=== PATIENT | female | born 1970 | race Caucasian/White ===

== ENCOUNTER 2020-05-06 22:42 | Outpatient (REF) | payer OTHER, SELFPAY ==
[2020-05-07 02:37] LABS: Abs Immature Grans 0.04 10^3/uL (0.0-0.06); Absolute Basophil Count 0.05 10^3/uL (0.0-0.2); Absolute Eosinophil Count 0.17 10^3/uL (0.0-0.7); Absolute Lymphocyte Count 2.75 10^3/uL (1.2-3.4); Absolute Monocyte Count 0.64 10^3/uL (0.1-0.8); Basophils % 0.4; Eosinophils % 1.4; HCT 39.5 % (36.0-46.0); HGB 12.1 g/dL (11.2-15.7); Immature Grans % 0.3; Lymphocytes % 23.2; MCH 25.3 pg (27.0-33.0); MCHC 30.6 % (32.0-36.0); MCV 82.6 fL (80-95); MPV 10.1 fL (8.0-11.0); Monocytes % 5.4; Neutrophils % 69.3; Nucleated RBC 0 %; Platelet Count 402 10^3/uL (130-400); RBC 4.78 10^6/uL (3.93-5.22); RDW 14.4 % (11.7-14.6); RDW-SD 43.6 fL; WBC 11.86 10^3/uL (4.4-10.8)
[2020-05-07 02:39] LABS: Absolute Neutrophil Count 8.22 10^3/uL (1.2-6.7)
[2020-05-07 02:51] LABS: COMMENT (LAB VIEW ONLY) 312.71 mg/dL
[2020-05-07 03:00] LABS: Hemoglobin A1C 8.9 % (<5.7)
[2020-05-07 03:17] LABS: ALT 38 U/L (14-59); AST 28 U/L (15-37); Albumin 3.8 g/dL (3.4-5.0); Alkaline Phosphatase 113 U/L (46-116); BUN 13 mg/dL (7-18); Bilirubin, Total 0.2 mg/dL (0.2-1.0); CREATININE 0.66 mg/dL (0.55-1.02); Chloride 106 mmol/L (98-107); Glucose 176 mg/dL (74-106); Potassium 4.3 mmol/L (3.5-5.1); Sodium 144 mmol/L (136-145); Total Protein 7.4 g/dL (6.4-8.2); Vitamin B12 492 pg/mL (193-986)
== END 2020-05-06 23:02 ==
LOC: NCHCN 22:42
PROVIDERS: Visit Provider Nurse Practitioner Family
DX: E11.9 Type 2 diabetes mellitus without complications (principal); R53.83 Other fatigue; D72.829 Elevated white blood cell count, unspecified; K76.0 Fatty (change of) liver, not elsewhere classified; Z51.81 Encounter for therapeutic drug level monitoring
CPT/HCPCS: 80053; 82043; 82570; 82607; 83036; 83735; 85025

== ENCOUNTER 2020-06-06 14:44 | Outpatient (REF) | payer OTHER, SELFPAY ==
--- NOTE | 2020-06-06 09:15 | ENDOMET_PTH ---
PATIENT: Melinda Martines LOC: [facility] U#:[id number] AGE/SX: 50/F ROOM: RE06/06/[address]: Ca Godwin : 1970 BED: DIS: 06/06/2020 SPEC #: [id number] RECD: 06/09/20 12:46 STATUS: SAMUEL REQ #: [id number] LEOBARDO: 06/06/20 09:[address]: Ca Godwin DEPT: Surgical Specimen RECD BY: Mayra Gill Tissues: 1 - ENDOMETRIUM BX/BERTHA Procedures: GROSS AND MICRO LEVEL 4 Comments: [id number]
--- NOTE | 2020-06-06 09:15 | PAPFT_PTH ---
PATIENT: Melinda Martines LOC: [facility] U#:[id number] AGE/SX: 50/F ROOM: RE06/06/[address]: Ca Godwin : 1970 BED: DIS: 06/06/2020 SPEC #: [id number] RECD: 06/09/20 13:10 STATUS: SAMUEL REQ #: [id number] LEOBARDO: 06/06/20 09:[address]: Ca Godwin DEPT: [facility] Cytology RECD BY: Mayra Gill Tissues: 1 - CX/ENDOCX FOR PAP SMEARS Procedures: PAP THIN PREP/[facility] Screening Comments: [id number]
== END 2020-06-06 15:04 ==
LOC: NCHCN 14:44
PROVIDERS: Visit Provider Family Medicine
DX: Z12.4 Encounter for screening for malignant neoplasm of cervix
CPT/HCPCS: 88142; 88305

== ENCOUNTER 2021-05-18 17:03 | Outpatient (REF) | payer OTHER, SELFPAY ==
[2021-05-18 22:32] LABS: COMMENT (LAB VIEW ONLY) 184.72 mg/dL; Microalb ug/mg Crea 7.7 ug/mg Cr
== END 2021-05-18 17:04 | disposition home or self-care (01) ==
LOC: NCHCN 17:03
PROVIDERS: Visit Provider Nurse Practitioner Family
DX: E11.9 Type 2 diabetes mellitus without complications (principal); I10 Essential (primary) hypertension
CPT/HCPCS: 82043; 82570

== ENCOUNTER 2021-07-21 12:03 | Outpatient (REF) | payer OTHER, SELFPAY ==
--- NOTE | 2021-07-21 11:30 | ENDOMET_PTH ---
PATIENT: Melinda Martines LOC: [facility] U#:[id number] AGE/SX: 51/F ROOM: RE07/21/[address]: Latonya Goins : 1970 BED: DIS: 07/21/2021 SPEC #: [id number] RECD: 07/22/21 12:32 STATUS: SAMUEL REQ #: [id number] LEOBARDO: 07/21/21 11:[address]: Latonya Ramos DEPT: Surgical Specimen RECD BY: Mayra Gill ENTERED: 07/22/21 12:33 SP TYPE: Endomet OT DR: Unknown,Unknown Tissues: 1 - ENDOMETRIUM BX/CURRETTE Procedures: GROSS AND MICRO LEVEL 4 Comments: [id number]
== END 2021-07-21 12:04 | disposition home or self-care (01) ==
LOC: LBN 12:03
PROVIDERS: Visit Provider Nurse Practitioner Family
DX: N85.8 Other specified noninflammatory disorders of uterus (principal)
CPT/HCPCS: 88305

== ENCOUNTER 2022-08-17 13:17 | Outpatient (REF) | payer OTHER, SELFPAY ==
[2022-08-19 12:25] LABS: COVID-19 RT-PCR UVMMC Result Positive (Negative)
== END 2022-08-17 13:18 | disposition home or self-care (01) ==
LOC: NCHCN 13:17
PROVIDERS: Visit Provider Nurse Practitioner Family
DX: Z20.822 Contact with and (suspected) exposure to COVID-19 (principal); J06.9 Acute upper respiratory infection, unspecified
CPT/HCPCS: U0003

== ENCOUNTER 2022-09-09 10:46 | Outpatient (REF) | payer OTHER, SELFPAY ==
--- OUTSIDE RECORDS SUMMARY | 2022-09-09 10:49 | XMS_ITS | CCD ---
:1970 Author Care Team Providers Name Role Phone FIONA NOVAK Attending Physician Unavailable Vital Signs Unknown or Not Available. Allergies Allergy Code Allergy Type Reaction Status DUST 0 Allergy to substance ITCHING Active POLLEN 0 Allergy to substance ITCHING Active IBUPROFEN 5640 Drug allergy Vomiting Active SULFA (SULFONAMIDE ANTIBIOTICS) 0 Drug allergy Hives Active {Clinical monitoring unavailable} BETADINE Drug allergy Active Procedures Unknown or Not Available. History of Immunizations Unknown or Not Available. Problems Unknown or Not Available. Results [facility] COVID RHEONIX* - Collect Date/Hugh e: 12/17/2021 13:12 Test Name Code Test Result Test Units Test Ref Range Tier- 05962-7 STAFF PRIORITY N/A SARS COV2 RNA: 80145-7 NEGATIVE N/A REFERENCE RAN GE: NEGAT Active Medications Unknown or Not Available. Medications Administered During Visit Unknown or Not Available. Encounters Encounter Diagnosis Diagnosis Code Start Date Exposure to SARS-CoV-2 [id number] 12/17/2021 Social History Smoking Status Code Start Date End Date Never smoker [id number] Patient Decision Aids Unknown or Not Available. Discharge Instructions You were admitted to [facility] on 12/17/2021 16:28 with a principal diagnosis of Contact with and (suspected) exposure to COVID-19 You had the following tests done: COPLE Y COVID RHEONIX* You were discharged from [facility] on 12/17/2021 16:28 Should you have any questions prior to d ischarge, please contact a member of your healthcare team. If you have left the ho spital and have any questions, please contact your primary care physician. Chief Complaint and Reason For Visit Unknown or Not Available. Function Status Unknown or Not Available. Plan of Care Unknown or Not Available. Referral/Transition of Care Unknown or Not Available.
--- OUTSIDE RECORDS SUMMARY | 2022-09-09 10:49 | XMS_ITS | CCD ---
:1970 Author Care Team Providers Name Role Phone FERNANDO WALKER Attending Physician Unavailable FERNANDO WALKER Rounding (Secondary) Physician Unavailab le Vital Signs Unknown or Not Available. Allergies [...] Available. Problems Unknown or Not Available. Results Unknown or Not Available. Active Medications Unknown or Not Available. Medications Administered During Visit Unknown or Not Available. Encounters Encounter Diagnosis Diagnosis Code Start Date Encounter for follow-up examination after completed Z09 09/17/2021 treatment for conditions other than malignant neoplasm Social History Smoking Status Code Start Date End Date Never smoker [id number] Patient Decision Aids Unknown or Not Available. Discharge Instructions You were admitted to [facility] on 09/17/2021 09:52 with a principal diagnosis of Encntr for f/u exam aft trtmt for con d oth than malig neoplm You were discharged from [facility] on 09/17/2021 09:52 Should you have any questions prior to d ischarge, please contact a member of your healthcare team. If you have left the spital and have any questions, please contact your primary care physician. Chief Complaint and Reason For Visit Unknown or Not Available. Function Status Unknown or Not Available. Plan of Care Unknown or Not Available. Referral/Transition of Care Unknown or Not Available.
--- OUTSIDE RECORDS SUMMARY | 2022-09-09 10:49 | XMS_ITS | CCD ---
:1970 Author Care Team Providers Name Role Phone KISHORE FIONA Anaya Attending Physician Unavailable Vital Signs Unknown or [...] Available. Problems Unknown or Not Available. Results [facility] COVID RHEONIX* - Collect Date/Hugh e: 12/21/2021 12:53 Test Name Code Test Result Test Units Test Ref Range Tier- 41611-2 STAFF PRIORITY N/A SARS COV2 RNA: 76100-1 NEGATIVE N/A REFERENCE RAN GE: NEGAT Active Medications Unknown or Not Available. Medications Administered During Visit Unknown or Not Available. Encounters Encounter Diagnosis Diagnosis Code Start Date Exposure to SARS-CoV-2 [id number] 12/21/2021 Social History Smoking Status Code Start Date End Date Never smoker [id number] Patient Decision Aids Unknown or Not Available. Discharge Instructions You were admitted to [facility] on 12/21/2021 20:12 with a principal diagnosis of Contact with and (suspected) exposure to COVID-19 You had the following tests done: COPLE Y COVID RHEONIX* You were discharged from [facility] on 12/21/2021 20:12 Should you have any questions prior to [...]
--- OUTSIDE RECORDS SUMMARY | 2022-09-09 10:49 | XMS_ITS | CCD ---
:1970 Author Care Team Providers Name Role Phone STEVE VELEZ Attending Physician Unavailable Vital Signs Unknown or Not Available. Allergies Allergy Code Allergy Type Reaction Status SULFA (SULFONAMIDE ANTIBIOTICS) {Clinical 0 Drug allergy Hives Active monitoring unavailable} BETADINE Drug allergy Active Procedures Unknown or Not Available. History of Immunizations Unknown or Not Available. Problems Unknown or Not Available. Results Unknown or Not Available. Active Medications Unknown or Not Available. Medications Administered During Visit Unknown or Not Available. Encounters Encounter Diagnosis Diagnosis Code Start Date Imaging result abnormal [id number] 07/14/2021 Social History Smoking Status Code Start Date End Date Never smoker [id number] Patient Decision Aids Unknown or Not Available. Discharge Instructions You were admitted to [facility] on 07/14/2021 14:22 with a principal diagnosis of Abnormal findings on diagnostic imagi ng of other specified body structures You were discharged from [facility] on 07/14/2021 14:22 Should you have any questions prior to d ischarge, please contact a member of your healthcare team. If you have left the ho spital and have any questions, please contact your primary care physician. Chief Complaint and Reason For Visit Chief Complaint Date of Onset PMB Function Status Unknown or Not Available. Plan of Care Unknown or Not Available. Referral/Transition of Care Unknown or Not Available.
--- OUTSIDE RECORDS SUMMARY | 2022-09-09 10:49 | XMS_ITS | CCD ---
:1970 Author Care Team Providers Name Role Phone FERNANDO WALKER Attending Physician Unavailable Vital Signs Unknown or Not Available. Allergies Allergy Code Allergy Type Reaction Status SULFA (SULFONAMIDE ANTIBIOTICS) {Clinical 0 Drug allergy Hives Active monitoring unavailable} BETADINE Drug allergy Active Procedures Unknown or Not Available. History of Immunizations Unknown or Not Available. Problems Unknown or Not Available. Results [facility] COVID RHEONIX* - Collect Date/Hugh e: 08/31/2021 16:50 Test Name Code Test Result Test Units Test Ref Range Tier- PRE-OP N/A SARS COV2 RNA: 76392-3 NEGATIVE N/A REFERENCE RAN GE: NEGAT Active Medications Unknown or Not Available. Medications Administered During Visit Unknown or Not Available. Encounters Encounter Diagnosis Diagnosis Code Start Date Pre-surgery testing [id number] 08/31/2021 Social History Smoking Status Code Start Date End Date Never smoker [id number] Patient Decision Aids Unknown or Not Available. Discharge Instructions You were admitted to [facility] on 08/31/2021 08:34 with a principal diagnosis of Encounter for preprocedural laborator y examination You had the following tests done: COPLE Y COVID RHEONIX* You were discharged from [facility] on 08/31/2021 08:34 Should you have any questions prior to [...]
--- OUTSIDE RECORDS SUMMARY | 2022-09-09 10:49 | XMS_ITS | CCD ---
[...] Available. Problems Unknown or Not Available. Results [facility] COVID RHEONIX* - Collect Date/Hugh e: 11/06/2021 10:37 Test Name Code Test Result Test Units Test Ref Range Tier- 11124-9 STAFF PRIORITY N/A SARS COV2 RNA: 31765-5 NEGATIVE N/A REFERENCE RAN GE: NEGAT Active Medications Unknown or Not Available. Medications Administered During Visit Unknown or Not Available. Encounters Encounter Diagnosis Diagnosis Code Start Date Exposure to SARS-CoV-2 [id number] 11/06/2021 Social History Smoking Status Code Start Date End Date Never smoker [id number] Patient Decision Aids Unknown or Not Available. Discharge Instructions You were admitted to [facility] on 11/06/2021 22:15 with a principal diagnosis of Contact with and (suspected) exposure to COVID-19 You had the following tests done: COPLE Y COVID RHEONIX* You were discharged from [facility] on 11/06/2021 22:15 Should you have any questions prior to [...]
--- OUTSIDE RECORDS SUMMARY | 2022-09-09 10:49 | XMS_ITS | CCD ---
[...] Available. Problems Unknown or Not Available. Results COMPREHENSIVE METABOLIC PANEL (CMP) - Co llect Date/Time: 08/27/2021 11:08 Test Name Code Test Result Test Units Test Ref Range GLUCOSE 2345-7 169 mg/dL L=70 H=116 BUN 3094-0 19 mg/dL L=6 H=25 CREATININE 2160-0 0.79 mg/dL L=0.51 H=0.95 SODIUM SERUM 2951-2 141 mmol/L L=136 H=145 POTASSIUM SERUM 2823-3 4.1 mmol/L L=3.4 H=5.2 CHLORIDE SERUM 2075-0 104 mmol/L L=96 H=110 CARBON DIOXIDE (CO2) 2028-9 30 mmol/L L=22 H= 34 ANION GAP 89837-6 6.7 mmol/L CALCIUM SERUM 64792-4 9.1 mg/dL L=8.2 H=10.2 BILIRUBIN TOTAL 1975-2 0.2 mg/dL L=0.0 H=1.3 ALK. PHOS. 6768-6 119 U/L L=46 H=116 SGOT (AST) 1920-8 19 U/L L=15 H=37 SGPT (ALT) 1742-6 31 U/L L=12 H=78 TOTAL PROTEIN 2885-2 8.0 gm/dL L=6.0 H=8.0 ALBUMIN 1751-7 3.7 gm/dL L=3.4 H=5.0 AGE 51 years eGFR (non-Afr.Amer.) 86596-9 77 mL/min eGFR (Afr-Samoan) 91541-9 93 mL/min CBC W/ DIFFERENTIAL* - Collect Date/Time : 08/27/2021 11:08 Test Name Code Test Result Test Units Test Ref Range WBC 6690-2 15.24 th/cmm L=5.00 H=10.00 NEUT % 71.0 % L=40.0 H=80.0 LYMPH % 22.8 % L=10.0 H=50.0 MONO % 78029-2 4.5 % L=2.0 H=12.0 EOS % 0.9 % L=0.0 H=8.0 BASO % 0.5 % L=0.0 H=3.0 IG % 2514-8 0.3 % L=0.0 H=1.1 NRBC % 05787-6 0.0 % L=0.0 H=0.0 NEUT abs count 751-8 10.8 th/cmm L=1.6 H=8.4 LYMPH abs count 731-0 3.5 th/cmm L=1.5 H=4.0 MONO abs count 742-7 0.7 th/cmm L=0.2 H=1.0 EOS abs count 711-2 0.1 th/cmm L=0.0 H=0.5 BASO abs count 704-7 0.1 th/cmm L=0.0 H=0.2 IG abs count 09682-5 0.1 th/cmm L=0.0 H=0.1 NRBC abs count 24016-6 0.0 mil/cmm L=0.0 H=0.0 RBC 789-8 4.82 mil/cmm L=3.90 H=5.40 HEMOGLOBIN 718-7 13.2 gm/dL L=12.0 H=16.0 HEMATOCRIT 4544-3 42 % L=37 H=47 MCV 787-2 86 fL L=82 H=92 MCH 785-6 27.4 pg L=27.0 H=31.0 MCHC 786-4 31.7 % L=32.0 H=36.0 RDW-SD 788-0 42.8 fL L=39.0 H=49.0 PLATELET COUNT 777-3 378 th/cmm L=150 H=450 URINALYSIS WITH MICRO AND REFLEX CULTUR* - Collect Date/Time: 08/27/2021 11:08 Test Name Code Test Result Test Units Test Ref Range COLLECTION MODE: NOT STATED N/A Color 5778-6 YELLOW N/A yellow Appearance 5767-9 CLEAR N/A clear Glucose urine 40937-7 NEGATIVE N/A negative mg/dl Bilirubin 5770-3 NEGATIVE N/A negative Ketones 2514-8 TRACE N/A negative mg/dl Spec gravity 5811-5 1.025 N/A 1.003 - 1.030 pH urine 2756-5 6.0 N/A 5.0 - 7.0 Protein 14179-6 NEGATIVE N/A negative mg/dl Urobilinogen 25380-2 0.2 N/A <or= 1 EU/dl Nitrite. 5802-4 NEGATIVE N/A negative Blood 5794-3 NEGATIVE N/A negative Leukocytes. NEGATIVE N/A negative WBCs. 91165-7 0-5 N/A 0-5 / hpf RBCs none N/A 0-5 / hpf Epith cells 16847-6 5-10 N/A 0-5 / hpf Cell types squam+trans N/A Crystals none N/A none Bacteria none N/A none Mucus none N/A none Casts none N/A none /lpf TEST (URINE) QUALITATIVE - Col lect Date/Time: 08/27/2021 11:08 Test Name Code Test Result Test Units Test Ref Range TEST 2106-3 NEGATIVE N/A Active Medications Unknown or Not Available. Medications Administered During Visit Unknown or Not Available. Encounters Encounter Diagnosis Diagnosis Code Start Date Abnormal findings on diagnostic imaging of other R9389 08/27/2021 specified body structures Social History Smoking Status Code Start Date End Date Never smoker [id number] Patient Decision Aids Unknown or Not Available. Discharge Instructions You were admitted to on 08/27/2021 09:01 with a principal diagnosis of Abnormal findings on diagnostic imagi ng of other specified body structures You had the following tests done: CBC W / DIFFERENTIAL* COMPREHENSIVE METABOLIC PANEL (CMP) TEST (URINE) QUALITATIVE URINALYSIS WITH MICRO AND REFLEX CULTUR* You were discharged from on 08/27/2021 09:08 Should you have any questions prior to [...]
--- OUTSIDE RECORDS SUMMARY | 2022-09-09 10:50 | XMS_ITS | CCD ---
[...] Encounters Encounter Diagnosis Diagnosis Code Start Date Screening mammography [id number] 06/18/2022 Social History Smoking Status Code Start Date End Date Never smoker [id number] Patient Decision Aids Unknown or Not Available. Discharge Instructions You were admitted to [facility] on 06/18/2022 14:39 with a principal diagnosis of Encounter for screening mammogram for malignant neoplasm of breast You were discharged from [facility] on 06/18/2022 14:39 Should you have any questions prior to d ischarge, please contact a member of your healthcare team. If you have left the ho spital and have any questions, please contact your primary care physician. Chief Complaint and Reason For Visit Chief Complaint Date of Onset SCR Function Status Unknown or Not Available. Plan of Care Unknown or Not Available. Referral/Transition of Care Unknown or Not Available.
--- OUTSIDE RECORDS SUMMARY | 2022-09-09 10:50 | XMS_ITS | CCD ---
[...] Available. Problems Unknown or Not Available. Results [facility] COVID RHEONIX* - Collect Date/Hugh e: 12/25/2021 12:30 Test Name Code Test Result Test Units Test Ref Range Tier- 60325-6 STAFF PRIORITY N/A SARS COV2 RNA: 26304-1 NEGATIVE N/A REFERENCE RAN GE: NEGAT Active Medications Unknown or Not Available. Medications Administered During Visit Unknown or Not Available. Encounters Encounter Diagnosis Diagnosis Code Start Date Exposure to SARS-CoV-2 [id number] 12/25/2021 Social History Smoking Status Code Start Date End Date Never smoker [id number] Patient Decision Aids Unknown or Not Available. Discharge Instructions You were admitted to [facility] on 12/25/2021 20:53 with a principal diagnosis of Contact with and (suspected) exposure to COVID-19 You had the following tests done: COPLE Y COVID RHEONIX* You were discharged from [facility] on 12/25/2021 20:53 Should you have any questions prior to [...]
[2022-09-09 15:49] LABS: Anion Gap 12.9 mmol/L (3-11); BUN 13 mg/dL (7-18); CO2 24.1 mmol/L (21.0-32.0); CREATININE 0.8 mg/dL (0.55-1.02); Chloride 103 mmol/L (98-107); Glucose 283 mg/dL (74-106); Potassium 4.2 mmol/L (3.5-5.1); Sodium 140 mmol/L (136-145)
[2022-09-09 15:55] LABS: COMMENT (LAB VIEW ONLY) 120.22 mg/dL; Microalb ug/mg Crea 6.1 ug/mg Cr
[2022-09-10 09:53] LABS: Hepatitis C Ab w Rflx HCV PCR Negative (Negative)
[2022-09-10 10:32] LABS: HIV-1/2 Ag & Ab Screen Negative (Negative)
== END 2022-09-09 10:47 | disposition home or self-care (01) ==
LOC: NCHCN 10:46
PROVIDERS: Visit Provider Nurse Practitioner Family
DX: E11.9 Type 2 diabetes mellitus without complications (principal); I10 Essential (primary) hypertension; E78.01 Familial hypercholesterolemia; B35.1 Tinea unguium; N76.0 Acute vaginitis; Z11.3 Encounter for screening for infections with a predominantly sexual mode of transmission; Z11.4 Encounter for screening for human immunodeficiency virus [HIV]; Z11.59 Encounter for screening for other viral diseases
CPT/HCPCS: 80048; 86803; 87389; 82043; 82570

== ENCOUNTER 2023-06-16 11:49 | Outpatient (REF) | payer OTHER, SELFPAY ==
--- NOTE | 2023-06-16 08:00 | PAPFT_PTH ---
PATIENT: Melinda Martines LOC: [facility]#:[id number] AGE/SX: 53/F ROOM: RE06/16/[address]: Latonya Goins : 1970 BED: DIS: 06/16/2023 SPEC #: [id number] RECD: 06/16/23 18:13 STATUS: SAMUEL REQ #: [id number] LEOBARDO: 06/16/23 08:[address]: Latonya Ramos DEPT: [facility] Cytology RECD BY: Mayra Gill ENTERED: 06/16/23 18:13 SP TYPE: PAPFT OT DR: Unknown,Unknown Tissues: 1 - CX/ENDOCX FOR PAP SMEARS Procedures: PAP THIN PREP/[facility] Screening HPV DNA PROBE Comments: [id number]
== END 2023-06-16 11:50 | disposition home or self-care (01) ==
LOC: NCHCN 11:49
PROVIDERS: Visit Provider Nurse Practitioner Family
DX: Z00.01 Encounter for general adult medical examination with abnormal findings (principal); Z12.4 Encounter for screening for malignant neoplasm of cervix
CPT/HCPCS: 88142; 87624

== ENCOUNTER 2023-09-15 13:14 | Outpatient (REF) | payer OTHER, SELFPAY ==
[2023-09-15 16:25] LABS: COMMENT (LAB VIEW ONLY) 230.51 mg/dL; Microalb ug/mg Crea 6.8 ug/mg Cr
== END 2023-09-15 13:15 | disposition home or self-care (01) ==
LOC: NCHCN 13:14
PROVIDERS: Visit Provider Nurse Practitioner Family
DX: E11.9 Type 2 diabetes mellitus without complications (principal)
CPT/HCPCS: 82043; 82570

== ENCOUNTER 2024-07-10 16:11 | Outpatient (REF) | payer OTHER, SELFPAY ==
[2024-07-10 22:43] LABS: Hemoglobin A1C 8.5 % (<5.7)
[2024-07-10 22:49] LABS: Anion Gap 8.1 mmol/L (3-11); BUN 14 mg/dL (7-18); CO2 27.9 mmol/L (21.0-32.0); CREATININE 0.9 mg/dL (0.55-1.02); Calcium 8.9 mg/dL (8.5-10.1); Calculated LDL 65 mg/dL (<100); Chloride 104 mmol/L (98-107); Cholesterol 143 mg/dL (<200); Estimated GFR 75.97 (mL/min/1.73m2); Glucose 190 mg/dL (74-106); HDL Cholesterol 52 mg/dL (40-60); Potassium 4.1 mmol/L (3.5-5.1); Sodium 140 mmol/L (136-145); Triglyceride 131 mg/dL (<150)
[2024-07-10 22:52] LABS: TSH (W/Ref FT4) 0.84 uIU/mL (0.36-3.74)
== END 2024-07-10 16:12 | disposition home or self-care (01) ==
LOC: NCHCN 16:11
PROVIDERS: Internal Medicine Endocrinology, Diabetes & Metabolism; Visit Provider Nurse Practitioner Family
DX: I10 Essential (primary) hypertension (principal); E78.5 Hyperlipidemia, unspecified
CPT/HCPCS: 80048; 80061; 83036; 84443

== ENCOUNTER 2024-12-21 09:22 | Outpatient (REF) | payer SELFPAY ==
[2024-12-21 14:54] LABS: COMMENT (LAB VIEW ONLY) 265.19 mg/dL; Microalb ug/mg Crea 5.8 ug/mg Cr
== END 2024-12-21 09:23 | disposition home or self-care (01) ==
LOC: NCHCN 09:22
PROVIDERS: PCP Nurse Practitioner Family; Visit Provider Nurse Practitioner Family
DX: E11.9 Type 2 diabetes mellitus without complications (principal)
CPT/HCPCS: 82043; 82570